=== PATIENT | male | born 1950 | race Caucasian/White ===

== ENCOUNTER 2018-10-22 08:04 | Emergency (ER) | payer BC, MEDICAID ==
[~2018-10-22] VITALS: Ht 185.4 cm; Wt 92.7 kg
[~2018-10-22 08:04] MED LIST: BENZ1TAB7 PO; RISP2TAB3 PO
[2018-10-22] MEDS ORDERED: OLANZAPINE (ODT) 5 MG TAB PO STA (08:10)
[2018-10-22 08:46] VITALS: Ht 185.4 cm; Wt 92.7 kg
--- NOTE | 2018-10-22 10:25 | PSY ---
Date/Time of Note Date/Time of Note DATE: 10/22/18 TIME: 10:19 Psychiatric Subjective Eval Consent Pt consented to telemedicine: Yes Subjective Evaluation Patient location: emergency Chief Complaint: Pt BIB RA [facility] from [employer] station for auditory hallucination History of present illness 68 yo single disabled male with hx psychosis BIB LE from a police station where he went from his B&C stating he hears voices. Pt is irritable, guarded, paranoid. He denies SI but says he wants to harm Even[employer] family who are ruling the world. He doesn' t know their whereabouts and says he used to know them in the past. Pt is grandiose. 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 + AH + PI Irritable. Pt is on Invega Sustenna , he is due to IM 10/28/18. Past psychiatric history last inpt was 2 weeks ago Hospitalization: yes Family History denies Medical history Problems Medical Problems: (1) Psychosis Status: Acute Allergies: Coded Allergies: No Known Allergy (Verified Allergy, Unknown, 04/28/07) Substance Abuse Substance use: No known substance abuse Social History Marital status: single Level of education: PAVEL per pt DPA/Conservatorship: No Occupation/Penitentiary: on ssi Psychiatric Objective Eval Review of Systems: Review of Systems: Not Applicable Mental Status Examination: Appearance: Disheveled Eye Contact: Good Psychomotor Activity: Normal Behavior: Cooperative, Hostile, Guarded Speech: Clear AFFECT: Constricted Mood: Irritable Though Process: Circumstantial Thought Content: Delusions Suicidal: No Homicidal: Yes On 72 hour hold: No Orientation: x4 Cognition: Alert Insight: Impared Judgement: Impared Laboratory Results Laboratory Tests Test 10/22/18 08:17 10/22/18 08:18 Sodium Level 141 mmol/L Potassium Level 3.8 mmol/L Chloride Level 106 mmol/L Carbon Dioxide Level 25 mmol/L Anion Gap 10 Blood Urea Nitrogen 16 mg/dl Creatinine 0.76 mg/dl Est Glomerular Filtrat Rate mL/min > 60 mL/min Glucose Level 100 mg/dl Calcium Level 8.8 mg/dl Total Bilirubin 0.3 mg/dl Direct Bilirubin 0.00 mg/dl Indirect Bilirubin 0.3 mg/dl Aspartate Amino Transf (AST/SGOT) 18 IU/L Alanine Aminotransferase (ALT/SGPT) 19 IU/L Alkaline Phosphatase 41 IU/L Total Protein 7.1 g/dl Albumin 4.0 g/dl Globulin 3.10 g/dl Albumin/Globulin Ratio 1.29 Salicylates Level < 1.0 mg/dl Acetaminophen Level < 10.0 ug/ml Ethyl Alcohol Level < 10.0 mg/dl White Blood Count 7.0 10^3/ul Red Blood Count 4.75 10^6/ul Hemoglobin 14.2 g/dl Hematocrit 42.5 % Mean Corpuscular Volume 89.5 fl Mean Corpuscular Hemoglobin 29.9 pg Mean Corpuscular Hemoglobin Concent 33.4 g/dl Red Cell Distribution Width 12.9 % Platelet Count 312 10^3/UL Mean Platelet Volume 8.5 fl Immature Granulocytes % 0.300 % Neutrophils % 63.1 % Lymphocytes % 27.2 % Monocytes % 8.2 % Eosinophils % 0.6 % Basophils % 0.6 % Nucleated Red Blood Cells % 0.0 /100WBC Immature Granulocytes # 0.020 10^3/ul Neutrophils # 4.4 10^3/ul Lymphocytes # 1.9 10^3/ul Monocytes # 0.6 10^3/ul Eosinophils # 0.0 10^3/ul Basophils # 0.0 10^3/ul Nucleated Red Blood Cells # 0.0 10^3/ul Urine Color YELLOW Urine Clarity CLEAR Urine pH 5.0 Urine Specific [place] 1.013 Urine Ketones NEGATIVE mg/dL Urine Nitrite NEGATIVE mg/dL Urine Bilirubin NEGATIVE mg/dL Urine Urobilinogen NEGATIVE mg/dL Urine Leukocyte Esterase NEGATIVE Yobani/ul Urine Hemoglobin NEGATIVE mg/dL Urine Glucose NEGATIVE mg/dL Urine Total Protein NEGATIVE mg/dl Urine Opiates Screen Negative Urine Barbiturates Negative Urine Amphetamines Screen Negative Urine Benzodiazepines Screen Negative Urine Cocaine Screen Negative Urine Cannabinoids Negative Assessment and Plan Assessment/Diagnosis Diagnosis PARANOID SCHIZOPHRENIA Recommendation/Plan Medication Management ZYPREXA 5 MG + aTIVAN 2 MG + bEANDRYL 50 MG im PRN Q 12 HRS AGITATION Discharge Disposition: Psychiatric inpatient Legal Status: Place involuntary hold LEEANNA DONALDSON MD Oct 22, 2018 10:24
--- NOTE | 2018-10-22 12:40 | ERD ---
ER Documentation Chief Complaint Chief Complaint Pt BIB RA [facility] from [facility] for auditory hallucination HPI Patient is a 68-year-old male with schizoaffective disorder who presents with delusions. Please note the history and physical exam is limited secondary to the patient's flight of ideas. The patient went to the [facility] and said told him that he was "hearing voices telling him to protect the border". He was brought in by ambulance. He denies suicidal or homicidal ideation. Upon review of old medical records this is the patient's third visit to the ER since 2006. He does not currently have a primary doctor. ROS All systems reviewed and are negative except as per history of present illness. Medications Home Meds Reported Medications Benztropine Mesylate* (Benztropine Mesylate*) 1 Mg Tablet, 1 MG PO BID, TAB 04/07/16 Risperidone* (Risperidone*) 2 Mg Tablet, 2 MG PO QHS, TAB 04/07/16 Allergies Allergies: Coded Allergies: No Known Allergy (Verified Allergy, Unknown, 04/28/07) PMhx/Soc History of Surgery: Yes (RIGHT ELBOW) Hx Cardiac Disorders: Yes (HTN) Hx Psychiatric Problems: Yes (pschizophrenia-affective disorder) Hx Miscellaneous Medical Probl: No Hx Alcohol Use: Yes Hx Substance Use: Yes Hx Tobacco Use: Yes Smoking Status: Current every day smoker FmHx Family History: No diabetes Physical Exam Vitals Vital Signs Date Temp Pulse Resp B/P (MAP) Pulse Ox O2 O2 Flow FiO2 Time Delivery Rate 10/22/18 99.4 88 16 132/74 96 08:46 (93) Physical Exam Const: No acute distress Head: Atraumatic Eyes: Normal Conjunctiva ENT: Normal External Ears, Nose and Mouth. Neck: Full range of motion. No meningismus. Resp: Clear to auscultation bilaterally Cardio: Regular rate and rhythm, no murmurs Abd: Soft, non tender, non distended. Normal bowel sounds Skin: No petechiae or rashes Back: No midline or flank tenderness Ext: No cyanosis, or edema Neur: Awake and alert Psych: Delusions, hearing voices, denies suicidal or homicidal ideation Result Diagram: 10/22/18 0818 10/22/18 0817 Results 24 hrs Laboratory Tests Test 10/22/18 08:17 10/22/18 08:18 Sodium Level 141 mmol/L Potassium Level 3.8 mmol/L Chloride Level 106 mmol/L Carbon Dioxide Level 25 mmol/L Anion Gap 10 Blood Urea Nitrogen 16 mg/dl Creatinine 0.76 mg/dl Est Glomerular Filtrat Rate mL/min > 60 mL/min Glucose Level 100 mg/dl Calcium Level 8.8 mg/dl Total Bilirubin 0.3 mg/dl Direct Bilirubin 0.00 mg/dl Indirect Bilirubin 0.3 mg/dl Aspartate Amino Transf (AST/SGOT) 18 IU/L Alanine Aminotransferase (ALT/SGPT) 19 IU/L Alkaline Phosphatase 41 IU/L Total Protein 7.1 g/dl Albumin 4.0 g/dl Globulin 3.10 g/dl Albumin/Globulin Ratio 1.29 Salicylates Level < 1.0 mg/dl Acetaminophen Level < 10.0 ug/ml Ethyl Alcohol Level < 10.0 mg/dl White Blood Count 7.0 10^3/ul Red Blood Count 4.75 10^6/ul Hemoglobin 14.2 g/dl Hematocrit 42.5 % Mean Corpuscular Volume 89.5 fl Mean Corpuscular Hemoglobin 29.9 pg Mean Corpuscular Hemoglobin Concent 33.4 g/dl Red Cell Distribution Width 12.9 % Platelet Count 312 10^3/UL Mean Platelet Volume 8.5 fl Immature Granulocytes % 0.300 % Neutrophils % 63.1 % Lymphocytes % 27.2 % Monocytes % 8.2 % Eosinophils % 0.6 % Basophils % 0.6 % Nucleated Red Blood Cells % 0.0 /100WBC Immature Granulocytes # 0.020 10^3/ul Neutrophils # 4.4 10^3/ul Lymphocytes # 1.9 10^3/ul Monocytes # 0.6 10^3/ul Eosinophils # 0.0 10^3/ul Basophils # 0.0 10^3/ul Nucleated Red Blood Cells # 0.0 10^3/ul Urine Color YELLOW Urine Clarity CLEAR Urine pH 5.0 Urine Specific [place] 1.013 Urine Ketones NEGATIVE mg/dL Urine Nitrite NEGATIVE mg/dL Urine Bilirubin NEGATIVE mg/dL Urine Urobilinogen NEGATIVE mg/dL Urine Leukocyte Esterase NEGATIVE Yobani/ul Urine Hemoglobin NEGATIVE mg/dL Urine Glucose NEGATIVE mg/dL Urine Total Protein NEGATIVE mg/dl Urine Opiates Screen Negative Urine Barbiturates Negative Urine Amphetamines Screen Negative Urine Benzodiazepines Screen Negative Urine Cocaine Screen Negative Urine Cannabinoids Negative Current Medications Medications Dose Sig/Anabelle Start Time Status Last (Trade) Ordered Route PRN Stop Time Admin Dose Reason Admin Olanzapine 5 mg ONCE STAT 10/22/18 DC 10/22/18 (Zyprexa PO 08:10 09:22 Zydis) 10/22/18 08:12 Procedures/MDM Smoking Cessation Therapy: Pt. was lectured for greater than 3 minutes on the health risks of continued smoking and the benefits of cessation. Patient is a 68-year-old male with schizoaffective disorder who presents with acute psychosis. The patient was given Zyprexa. He was medically cleared. He was seen by psychiatry who recommended involuntary admission for psych. The patient will be transferred to a psych facility once an accepting facility is found. Zyprexa, Ativan, and Benadryl are ordered twice daily as recommended by psychiatry. Departure Diagnosis: Primary Impression: Psychosis Condition: STEVEN Morales MD Oct 22, 2018 12:40
[2018-10-22] MEDS ORDERED: LORAZEPAM 1 MG TAB PO PRN (13:00)
[2018-10-22] MEDS ORDERED: DIPHENHYDRAMINE 50 MG CAP PO PRN (13:00)
[2018-10-22 15:30] VITALS: BP 142/86; PULSE 90; RESP 14
[2018-10-22] MEDS ORDERED: OLANZAPINE (ODT) 5 MG TAB ODT SCH (21:00)
== END 2018-10-22 15:45 ==
LOC: E/R 08:04
DX: F29 Unspecified psychosis not due to a substance or known physiological condition (principal); I10 Essential (primary) hypertension; F17.210 Nicotine dependence, cigarettes, uncomplicated
CPT/HCPCS: 36415; 80053; 80307; 81003; 85025